=== PATIENT | female | born 1960 | race Caucasian/White ===

== ENCOUNTER 2020-06-01 10:04 | Observation (INO) ==
[2020-06-01 10:17] VITALS: BMI 35.2
--- NOTE | 2020-06-01 10:26 | DR.GENAD ---
HPI Time Seen Time Seen by Provider: 06/01/20 10:21 PCP Primary Care Physician: marcial montague Complaint/Symptoms Chief Complaint:: "05-25-20 tested + covid, took zpack, steroids, and still has not gotten any better, along with vits. Self Treatment fo Chief Complaint: all meds prescribed on 05-25 COVID-19 Coronavirus risk:travel/contact w/high risk person: Yes Has patient experienced Coronavirus symptoms: Yes Coronavirus symptoms experienced: Fever, Coughing and Shortness of Breath Source History Provided: Patient and Family Member Mode of Arrival Mode of Arrival: Wheelchair Timing Onset of Chief Complaint: 05/25/20 Came on: Suddenly Duration Duration: Constant Duration: Hours PMH PMH Past Medical History: Yes Past Medical History: Arthritis, Dyslipidemia and Hypertension Past Surgical History: Yes Surgical History: Ortho Surgery Family History History of Family Medical Conditions: Yes Family Medical History: PA, Coronary Artery Disease and Hypertension Social History Does any household member use tobacco: No Alcohol Use: None Do you use any recreational Drugs:: No Lives With: Alone Lives Where: Home Travel Risk Coronavirus risk:travel/contact w/high risk person: Yes Has patient experienced Coronavirus symptoms: Yes Coronavirus symptoms experienced: Fever, Coughing and Shortness of Breath Infectious screening In the last 2 months have you had wt loss of >10#?: NO Have you had fever, night sweats or hemotysis?: No Have you traveled outside the country in the last 6 months?: No Isolation: Droplet ROS Review of Systems Constitutional: No Symptoms Reported and See HPI Eyes: No Symptoms Reported and See HPI ENTM: No Symptoms Reported, See HPI and Drooling Respiratoy: No Symptoms Reported and See HPI Cardiovascular: No Symptoms Reported and See HPI Gastrointestinal/Abdominal: No Symptoms Reported and See HPI Genitourinary: No Symptoms Reported and See HPI Neurological: No Symptoms Reported and See HPI Musculoskeletal: No Symptoms Reported and See HPI Integumentary: No Symptoms Reported and See HPI Hematologic/Lymphatic: No Symptoms Reported and See HPI Endocrine: No Symptoms Reported and See HPI Psychiatric: No Symptoms Reported and See HPI All Other Systems: Reviewed and Negative Unable to Obtain Due To: Dementia PE Vital Signs Vitals: Temperature 98.5 F Pulse Rate 81 Respiratory Rate 16 Blood Pressure [Right Arm] 98/50 Blood Pressure 124/55 O2 Sat by Pulse Oximetry 95 ROR Labs Reviewed Result Diagrams: 12/21/20 11:06 06/01/20 11:06 Laboratory: WBC 6.2 X10^3/uL (3.6-10.0) 06/01/20 11:06 RBC 4.37 X10^6/uL (3.5-5.4) 06/01/20 11:06 Hgb 13.2 g/dL (12.0-16.0) 06/01/20 11:06 Hct 38.0 % (36.0-47.0) 06/01/20 11:06 MCV 87.0 fL (80.0-100.0) 06/01/20 11:06 MCH 30.1 pg (27.0-34.0) 06/01/20 11:06 MCHC 34.6 g/dL (33.0-35.0) 06/01/20 11:06 RDW 14.4 % (11.6-16.5) 06/01/20 11:06 Plt Count 261 X10^3/uL (150.0-450.0) 06/01/20 11:06 MPV 8.7 fL (7.4-11.0) 06/01/20 11:06 Neut % (Auto) 73.0 % (42.0-75.0) 06/01/20 11:06 Lymph % (Auto) 14.8 % (21.0-51.0) L 06/01/20 11:06 Mccone % (Auto) 10.3 % (0.0-13.0) 06/01/20 11:06 Eos % (Auto) 0.4 % (0.9-2.9) L 06/01/20 11:06 Baso % (Auto) 1.5 % (0.2-1.0) H 06/01/20 11:06 Neut # (Auto) 4.6 x10^3/uL (2.2-4.8) 06/01/20 11:06 Lymph # (Auto) 0.9 X10^3/uL (1.3-2.9) L 06/01/20 11:06 Mccone # (Auto) 0.6 x10^3/uL (0.3-0.8) 06/01/20 11:06 Eos # (Auto) 0.0 x10^3/uL (0.0-0.2) 06/01/20 11:06 Baso # (Auto) 0.1 X10^3/uL (0.0-0.1) 06/01/20 11:06 Absolute Nucleated RBC 0.1 /100WBC 06/01/20 11:06 Sample Site Rbra 06/01/20 11:47 ABG pH 7.490 (7.35-7.45) H 06/01/20 11:47 ABG pCO2 34.0 mmHg (35.0-45.0) L 06/01/20 11:47 ABG pO2 63.0 mmHg (80.0-100.0) L 06/01/20 11:47 ABG HCO3 25.9 mmol/L (22-26) 06/01/20 11:47 ABG O2 Saturation 94.0 % (90-100) 06/01/20 11:47 ABG Base Excess 2.8 mmol/L (-2.0-2.0) H 06/01/20 11:47 Micha Test N/a 06/01/20 11:47 A-a Gradient 44.0 mmHg 06/01/20 11:47 FiO2 21.0 06/01/20 11:47 Blood Gas Comments Pt ashwin well elj cdn 06/01/20 11:47 Sodium 137 mmol/L (136-145) 06/01/20 11:06 Corrected Sodium TNP 06/01/20 11:06 Potassium 3.3 mmol/L (3.5-5.1) L 06/01/20 11:06 Chloride 98 mmol/L (98-107) 06/01/20 11:06 Carbon Dioxide 26.4 mmol/L (21-32) 06/01/20 11:06 BUN 28 mg/dL (7-18) H 06/01/20 11:06 Creatinine 0.89 mg/dL (0.55-1.02) 06/01/20 11:06 Est GFR (MDRD) Af Amer > 60 (>60) 06/01/20 11:06 Est GFR (MDRD) Non-Af > 60 (>60) 06/01/20 11:06 Glucose 93 mg/dL (65-99) 06/01/20 11:06 Lactic Acid 1.2 mmol/L (0.4-2.0) 06/01/20 11:06 Calcium 8.9 mg/dL (8.5-10.1) 06/01/20 11:06 Corrected Calcium 9.7 mg/dL (8.5-10.1) 06/01/20 11:06 Total Bilirubin 0.30 mg/dL (0.2-1.0) 06/01/20 11:06 AST 49 Units/L (15-37) H 06/01/20 11:06 ALT 46 Units/L (12-78) 06/01/20 11:06 Alkaline Phosphatase 119 Units/L (46-116) H 06/01/20 11:06 Creatine Kinase 47 Units/L (26-192) 06/01/20 11:06 CK-MB (CK-2) < 1.0 ng/mL (0-4.0) 06/01/20 11:06 CK/CKMB % Calc 2.1 % (<4) 06/01/20 11:06 Troponin I < 0.02 ng/mL (0-1.5) 06/01/20 11:06 Total Protein 7.4 g/dL (6.4-8.2) 06/01/20 11:06 Albumin 3.0 g/dL (3.4-5.0) L 06/01/20 11:06 Globulin 4.4 g/dL (2.5-4.5) 06/01/20 11:06 Albumin/Globulin Ratio 0.7 Ratio (1.1-2.1) L 06/01/20 11:06 Specimen Type Random urine 06/01/20 10:49 Urine Color Yellow (YELLOW) 06/01/20 10:49 Urine Appearance Slightly hazy (CLEAR) 06/01/20 10:49 Urine pH 6.5 (5.0 - 8.0) 06/01/20 10:49 Ur Specific [place] 1.015 (1.000-1.030) 06/01/20 10:49 Urine Protein 2+ (NEGATIVE) 06/01/20 10:49 Urine Glucose (UA) Negative (NEGATIVE) 06/01/20 10:49 Urine Ketones Negative (NEGATIVE) 06/01/20 10:49 Urine Occult Blood 1+ (NEGATIVE) 06/01/20 10:49 Urine Nitrite Negative (NEGATIVE) 06/01/20 10:49 Urine Bilirubin Negative (NEGATIVE) 06/01/20 10:49 Urine Urobilinogen Normal (NORMAL) 06/01/20 10:49 Ur Leukocyte Esterase 2+ (NEGATIVE) 06/01/20 10:49 Urine RBC 0-2 /HPF (0-3) 06/01/20 10:49 Urine WBC 3-5 /HPF (0-5) 06/01/20 10:49 Ur Squamous Epith Cells Rare /HPF (NEGATIVE) 06/01/20 10:49 Urine Bacteria Negative /HPF (NEGATIVE) 06/01/20 10:49 Coarse Granular Casts Rare /HPF (NEGATIVE) 06/01/20 10:49 Ur Culture Indicated? No/not indicated 06/01/20 10:49 Opioid Opioid Risk Tool Age (Rajeev box if 16-45): No History of Preadolescent Sexual Abuse: No Total: 0 Total Score Risk Category: Low Risk Copyright: Aiden BLANCHARD predicting aberrant behaviors Instructions Forms: Precautions for COVID19 Patient Portal Social Distancing
[2020-06-01] MEDS ORDERED: NS 1000 ML 1,000 ML ONE (11:08)
--- NOTE | 2020-06-01 11:15 | RAD ---
HISTORYChest pain, COVID-19STUDYChest AP [id number]/2020FINDINGSThe heart is within normal limits in size. The jessy are normal. There is been resolution of the previously noted airspace opacities in the right lung. Predominantly peripheral airspace opacities remain in the left upper and left lower lobes. No pleural effusions are identified. Bony thorax is unremarkable.IMPRESSIONResolution of the previously noted right lung infiltratesNo change left lung infiltrates when compared with the prior examinationElectronically signed by: YAMILKA MCMULLEN (Jun 01, 2020 11:13:24)
[2020-06-01] MEDS: NS 1000 ML 1,000 ML IV SCH ×2 (11:20→20:41)
[2020-06-01 11:40] LABS: BASOPHILS # (AUTO) 0.1 X10^3/uL (0.0-0.1); BASOPHILS % (AUTO) 1.5 % (0.2-1.0); EOSINOPHILS % (AUTO) 0.4 % (0.9-2.9); HEMOGLOBIN 13.2 g/dL (12.0-16.0); LYMPHOCYTES # (AUTO) 0.9 X10^3/uL (1.3-2.9); LYMPHOCYTES % (AUTO) 14.8 % (21.0-51.0); MEAN CORPUSCULAR HEMOGLOBIN 30.1 pg (27.0-34.0); MEAN CORPUSCULAR HGB CONC 34.6 g/dL (33.0-35.0); MEAN PLATELET VOLUME 8.7 fL (7.4-11.0); MONOCYTES # (AUTO) 0.6 x10^3/uL (0.3-0.8); MONOCYTES % (AUTO) 10.3 % (0.0-13.0); NEUTROPHILS # (AUTO) 4.6 x10^3/uL (2.2-4.8); PLATELET COUNT 261 X10^3/uL (150.0-450.0); RED BLOOD COUNT 4.37 X10^6/uL (3.5-5.4); RED CELL DISTRIBUTION WIDTH 14.4 % (11.6-16.5); WHITE BLOOD COUNT 6.2 X10^3/uL (3.6-10.0)
[2020-06-01 11:52] LABS: BLOOD UREA NITROGEN 28 mg/dL (7-18); CALCIUM 8.9 mg/dL (8.5-10.1); CARBON DIOXIDE 26.4 mmol/L (21-32); CHLORIDE 98 mmol/L (98-107); CREATININE 0.89 mg/dL (0.55-1.02); SODIUM 137 mmol/L (136-145); TROPONIN I < 0.02 ng/mL (0-1.5); eGFR NON BLACK RACES > 60 (>60)
[2020-06-01 11:53] LABS: ABG BASE EXCESS 2.8 mmol/L (-2.0-2.0); ABG HCO3 25.9 mmol/L (22-26)
[2020-06-01 11:56] LABS: ALANINE AMINOTRANSFERASE 46 Units/L (12-78); ALKALINE PHOSPHATASE 119 Units/L (46-116); ASPARTATE AMINO TRANSFERASE 49 Units/L (15-37); CKMB % 2.1 % (<4); COR CA(FOR HYPOALB) 9.7 mg/dL (8.5-10.1); CREATINE KINASE 47 Units/L (26-192); CREATINE KINASE MB < 1.0 ng/mL (0-4.0); TOTAL PROTEIN 7.4 g/dL (6.4-8.2)
[2020-06-01] MEDS ORDERED: ROCEPHIN 1 GRAM IV PREMIX 1 G/50 ML IV.SOLN. IV ONE ×2 (13:51→14:53)
[2020-06-01] MEDS ORDERED: SOLU-Medrol 125 MG VIAL IVP ONE (13:52)
[2020-06-01] MEDS ORDERED: SOLU-Medrol 125 MG VIAL ONE (14:52)
[2020-06-01 16:45] LABS: BILIRUBIN,URINE NEGATIVE (NEGATIVE); BLOOD/HEMOGLOBIN,URINE 1+ (NEGATIVE); GLUCOSE, URINE NEGATIVE (NEGATIVE); KETONES,URINE NEGATIVE (NEGATIVE); LEUKOCYTE ESTERASE ,URINE 2+ (NEGATIVE); NITRITES,URINE NEGATIVE (NEGATIVE); PH,URINE 6.5 (5.0 - 8.0); PROTEIN,URINE 2+ (NEGATIVE); UROBILINOGEN,URINE NORMAL (NORMAL)
[2020-06-01 17:02] LABS: APPEARANCE,URINE SLIGHTLY HAZY (CLEAR); COLOR,URINE YELLOW (YELLOW)
[2020-06-01 17:12] LABS: BACTERIA,URINE NEGATIVE /HPF (NEGATIVE); COARSE GRANULAR CASTS,URINE RARE /HPF (NEGATIVE); SQUAMOUS EPITHELIAL CELL,UR RARE /HPF (NEGATIVE)
[2020-06-01 17:13] LABS: RBC,URINE 0-2 /HPF (0-3)
[2020-06-01] MEDS ORDERED: NS 1000 ML 1,000 ML IV SCH (18:26)
[2020-06-01] MEDS: DUONEB 0.5 MG/3 MG (3 mL) NEB SCH (21:00)
[2020-06-01] MEDS: PULMICORT NEB TX 0.5 MG NEB SCH (21:00)
[2020-06-02] MEDS: NS 1000 ML 1,000 ML IV SCH ×4 (05:04→18:12)
[2020-06-02] MEDS: DUONEB 0.5 MG/3 MG (3 mL) NEB SCH ×3 (05:25→20:10)
[2020-06-02 06:01] LABS: ABG ALLEN TEST POS; ABG BASE EXCESS -1.1 mmol/L (-2.0-2.0); ABG HCO3 22.4 mmol/L (22-26)
[2020-06-02 06:46] LABS: BASOPHILS % (AUTO) 0.2 % (0.2-1.0); HEMATOCRIT 34.5 % (36.0-47.0); HEMOGLOBIN 11.6 g/dL (12.0-16.0); LYMPHOCYTES # (AUTO) 1.1 X10^3/uL (1.3-2.9); LYMPHOCYTES % (AUTO) 23.1 % (21.0-51.0); MEAN CORPUSCULAR HEMOGLOBIN 29.5 pg (27.0-34.0); MEAN CORPUSCULAR HGB CONC 33.6 g/dL (33.0-35.0); MEAN CORPUSCULAR VOLUME 87.9 fL (80.0-100.0); MONOCYTES # (AUTO) 0.5 x10^3/uL (0.3-0.8); MONOCYTES % (AUTO) 11.1 % (0.0-13.0); NEUTROPHILS # (AUTO) 3.1 x10^3/uL (2.2-4.8); NEUTROPHILS % (AUTO) 65.6 % (42.0-75.0); PLATELET COUNT 258 X10^3/uL (150.0-450.0); RED BLOOD COUNT 3.93 X10^6/uL (3.5-5.4); RED CELL DISTRIBUTION WIDTH 14.3 % (11.6-16.5); WHITE BLOOD COUNT 4.7 X10^3/uL (3.6-10.0)
--- NOTE | 2020-06-02 07:02 | RAD ---
HISTORYShortness of breathSTUDYChest AP [id number]/21/2020FINDINGSThe heart is upper limits normal in size. No definite congestive heart failure is noted. Bilateral interstitial infiltrates are unchanged. No definite residual ground-glass or alveolar infiltrates on the right. Peripheral ground-glass infiltrates in the left upper lobe and left midlung are unchanged. No pleural effusions are identified. Bony thorax is unremarkable.IMPRESSIONNo significant change from the prior examinationElectronically signed by: YAMILKA MCMULLEN (Jun 02, 2020 07:00:50)
[2020-06-02 07:12] LABS: ALANINE AMINOTRANSFERASE 69 Units/L (12-78); ALBUMIN 2.6 g/dL (3.4-5.0); ALKALINE PHOSPHATASE 116 Units/L (46-116); ASPARTATE AMINO TRANSFERASE 64 Units/L (15-37); BLOOD UREA NITROGEN 20 mg/dL (7-18); CALCIUM 8.3 mg/dL (8.5-10.1); CARBON DIOXIDE 21.3 mmol/L (21-32); CHLORIDE 105 mmol/L (98-107); CKMB % 3.1 % (<4); COR CA(FOR HYPOALB) 9.4 mg/dL (8.5-10.1); CREATINE KINASE 32 Units/L (26-192); CREATINE KINASE MB < 1.0 ng/mL (0-4.0); CREATININE 0.66 mg/dL (0.55-1.02); SODIUM 140 mmol/L (136-145); TOTAL PROTEIN 6.6 g/dL (6.4-8.2); TROPONIN I < 0.02 ng/mL (0-1.5); eGFR NON BLACK RACES > 60 (>60)
[2020-06-02] MEDS: LOVENOX INJ 30 MG SYR SC SCH ×2 (08:53→20:03)
[2020-06-02] MEDS: PULMICORT NEB TX 0.5 MG NEB SCH ×2 (09:50→20:10)
[2020-06-02] MEDS ORDERED: REMDESIVIR 200 MG in NS 250 ML IV 250 ML IV SCH (09:58)
[2020-06-02] MEDS: LEVAQUIN PREMIX IV 500 MG 500 MG/100 ML BAG IV SCH (11:25)
[2020-06-02] MEDS: SOLU-Medrol 40 MG VIAL IVP SCH ×3 (11:25→21:08)
[2020-06-02] MEDS: TYLENOL 325 MG TAB PO PRN ×2 (13:11→21:23)
--- NOTE | 2020-06-02 21:50 | DR.H&P ---
H&P - History & Physical for Day of: H&P Date: 06/01/20 - Chief Complaint Chief Complaint: COUGH, SOB, FEVER, BODY ACHES - History of Present Illness History of Present Illness: WAS SEEN IN THE OFFICE LAST WEEK WITH COMPLAINTS OF BODY ACHES, COUGH, SHORTNESS OF BREATH, AND FEVER. SYMPTOMS STARTED ABOUT A WEEK AGO. SHE WAS SWABBED FOR COVID-19 IN THE OFFICE ON 05/25/20. SHE WAS POSITIVE. AT THAT TIME, SHE WAS STARTED ON A ZPAK, A MEDROL DOSEPAK, PLAQUENIL 200MG PO BID, AND ALBUTEROL NEB TX. SHE HAS COMPLETED THIS COURSE OF MEDICATION, BUT CONTINUES TO REPORT WORSENING IN SYMPTOMS DESPITE COMPLIANCE WITH MEDICATIONS. HER PMH INCLUDES HTN AND GERD. AUSCULTATION OF LUNG BAUER REVEALED DIMINISHED LUNG SOUNDS. ON ARRIVAL TO THE ER, VITALS WERE 98.5-81-16-95%-124/55. LABS WERE OBTAINED. ABNORMAL LAB VALUES INCLUDE THE FOLLOWING: POTASSIUM 3.3, BUN 28, AST 49, ALK PHOS 119, ALBUMIN 3.0. CARDIAC ENZYMES WITHIN NORMAL LIMITS. URINALYSIS REVEALED: WBC 3-5, RBC 0-2, LEUKOCYTES 2+, BACTERIA NEGATIVE, OCCULT BLOOD 1+, PROTEIN 2+. COVID-19 POSITIVE. AN ABG WAS OBTAINED. ABNORMAL LAB VALUES INCLUDE THE FOLLOWING: PH 7.490, PC02 34, P02 63, HC03 25.9, 02 SAT 94, FI02 21.0. BLOOD CULTURES ARE PENDING. A CHEST XRAY WAS OBTAINED AND REVEALED: Resolution of the previously noted right lung infiltrates. No change left lung infiltrates when compared with the prior examination. EKG REVEALED: SINUS RHYTHM WITH HR 76. SHE WAS PLACED ON NASAL CANNULA AT 2 LPM. IN THE ER, SHE WAS GIVEN ROCEPHIN 1G IV X 1, SOLU-MEDROL 125MG IV X 1, AND REMDESIVIR 200MG IV X 1. SHE WAS ADMITTED TO THE HOSPITAL FOR FURTHER EVALUATION AND TREATMENT OF PNEUMONIA DUE TO COVID-19, HYPOXIA, AND DEHYDRATION. SHE WAS STARTED ON NORMAL SALINE AT 125ML/HR, LEVAQUIN 500MG IV DAILY, REMDESIVIR 100MG IV DAILY, SOLU-MEDROL 80MG IV Q8H, DUONEBS TID, PULMICORT NEBS BID, AND LOVENOX 30MG SC BID. WE HAVE ORDERED ONE UNIT OF CONVALESCENT PLASMA TO BE TRANSFUSED WHEN AVAILABLE. - Past Medical History Past Medical History: Hypertension, Dyslipidemia, Arthritis - Past Surgical History Surgical History: Ortho Surgery - Family History Family Medical History: Heart Failure - Social History Does any household member use tobacco: No Alcohol Use: None Drug Use: None - Medications Home Medications: No Known Drug Allergies Allergy (Verified 05/29/20 13:28) CONTINUE taking the following medications bupropion HCl 450 mg PO DAILY 06/01/20 [History] [id number] 1 cap PO PRN PRN 06/01/20 [History] diclofenac potassium 75 mg PO DAILY 06/01/20 [History] hydrochlorothiazide 25 mg PO DAILY 06/01/20 [History] ibuprofen 800 mg PO TID 06/01/20 [History] montelukast [Singulair] 10 mg PO DAILY 06/01/20 [History] rosuvastatin 20 mg PO HS 06/01/20 [History] tramadol [Ultram] 50 mg PO PRN PRN 06/01/20 [History] valsartan 320 mg PO DAILY 06/01/20 [History] - Review of Systems Constitutional: Fever, Chills, Weakness Eyes: No Symptoms Reported ENT: No Symptoms Reported Respiratory: See HPI, Cough, Shortness of Breath, Wheezing Cardiovascular: No Symptoms Reported Gastrointestinal: No Symptoms Reported Genitourinary: No Symptoms Reported Musculoskeletal: No Symptoms Reported Skin: No Symptoms Reported Neurological: Weakness - Physical Exam Vital Signs: Temperature 97.6 F Pulse Rate [Left Brachial] 76 Pulse Rate 80 Respiratory Rate 20 Blood Pressure [Left Arm] 132/63 Blood Pressure [Right Arm] 98/50 Blood Pressure 124/55 O2 Sat by Pulse Oximetry 95 Oriented: Normal Eyes: Normal Ear: Normal Nose: Normal Throat: Normal Respiratory: Wheezes Throughout Cardiovascular: Normal : Normal Auscultation: Bowel Sounds: Normal Palpation: Normal Tenderness: Normal Skin: Normal Musculoskeletal: Normal Psychiatric: Normal Mood Description: Calm Affect: Normal Speech Pattern: Clear - Assessment/Plan (1) Pneumonia due to COVID-19 virus Status: Acute Plan: ADMIT, NORMAL SALINE AT 125ML/HR, LEVAQUIN 500MG IV DAILY, REMDESIVIR 100MG IV DAILY, SOLU-MEDROL 80MG IV Q8H, DUONEBS TID, PULMICORT NEBS BID, AND LOVENOX 30MG SC BID (2) Hypoxia Status: Acute (3) Dehydration Status: Acute - Allergies Allergies/Adverse Reactions: Allergies Allergy/AdvReac Type Severity Reaction Status Date / Time No Known Drug Allergies Allergy Verified 05/29/20 13:28
[2020-06-03] MEDS: NS 1000 ML 1,000 ML IV SCH ×3 (00:15→20:55)
[2020-06-03 05:04] LABS: ABG ALLEN TEST POS; ABG BASE EXCESS -1.1 mmol/L (-2.0-2.0); ABG HCO3 22.2 mmol/L (22-26)
[2020-06-03] MEDS: SOLU-Medrol 40 MG VIAL IVP SCH ×3 (05:18→21:05)
[2020-06-03] MEDS: DUONEB 0.5 MG/3 MG (3 mL) NEB SCH ×3 (06:00→22:15)
[2020-06-03 06:14] LABS: BASOPHILS % (AUTO) 0.3 % (0.2-1.0); HEMATOCRIT 35.6 % (36.0-47.0); HEMOGLOBIN 11.8 g/dL (12.0-16.0); LYMPHOCYTES # (AUTO) 1.1 X10^3/uL (1.3-2.9); LYMPHOCYTES % (AUTO) 19.8 % (21.0-51.0); MEAN CORPUSCULAR HEMOGLOBIN 29.3 pg (27.0-34.0); MEAN CORPUSCULAR VOLUME 88.7 fL (80.0-100.0); MEAN PLATELET VOLUME 9.2 fL (7.4-11.0); MONOCYTES # (AUTO) 0.4 x10^3/uL (0.3-0.8); MONOCYTES % (AUTO) 7.8 % (0.0-13.0); NEUTROPHILS % (AUTO) 72.1 % (42.0-75.0); PLATELET COUNT 264 X10^3/uL (150.0-450.0); RED BLOOD COUNT 4.01 X10^6/uL (3.5-5.4); RED CELL DISTRIBUTION WIDTH 14.3 % (11.6-16.5); WHITE BLOOD COUNT 5.6 X10^3/uL (3.6-10.0)
[2020-06-03 06:42] LABS: ALANINE AMINOTRANSFERASE 62 Units/L (12-78); ALBUMIN 2.7 g/dL (3.4-5.0); ALKALINE PHOSPHATASE 112 Units/L (46-116); ASPARTATE AMINO TRANSFERASE 47 Units/L (15-37); BLOOD UREA NITROGEN 13 mg/dL (7-18); CALCIUM 8.4 mg/dL (8.5-10.1); CARBON DIOXIDE 19.2 mmol/L (21-32); CHLORIDE 106 mmol/L (98-107); COR CA(FOR HYPOALB) 9.4 mg/dL (8.5-10.1); CREATININE 0.65 mg/dL (0.55-1.02); SODIUM 139 mmol/L (136-145); TOTAL PROTEIN 6.7 g/dL (6.4-8.2); eGFR NON BLACK RACES > 60 (>60)
--- NOTE | 2020-06-03 07:42 | RAD ---
HISTORYShortness of breathSTUDYChest AP [id number]/22/2020FINDINGSThe heart is upper limits normal size. No congestive heart failure is noted. Bilateral interstitial infiltrates are present unchanged from the prior examination. There are some ground-glass infiltrates peripherally in the left upper lobe also unchanged. No pleural effusions are identified. Bony thorax is unremarkable.IMPRESSIONNo significant change from the prior day's examinationElectronically signed by: YAMILKA MCMULLEN (Jun 03, 2020 07:40:51)
[2020-06-03] MEDS: PULMICORT NEB TX 0.5 MG NEB SCH ×2 (09:00→22:15)
[2020-06-03] MEDS: LEVAQUIN PREMIX IV 500 MG 500 MG/100 ML BAG IV SCH (09:33)
[2020-06-03] MEDS: LOVENOX INJ 30 MG SYR SC SCH ×2 (09:33→20:55)
[2020-06-03] MEDS: REMDESIVIR 100 MG in NS 250 ML IV 250 ML IV SCH (10:49)
[2020-06-03] MEDS ORDERED: POTASSIUM CHLORIDE LIQ 20 MEQ UDC PO PRN (12:32)
[2020-06-03] MEDS ORDERED: KLOR-CON PO PRN (12:32)
[2020-06-03] MEDS ORDERED: POTASSIUM CHL 60 MEQ/NS 0.45% 500 ML IV PRN (12:32)
[2020-06-03] MEDS ORDERED: POTASSIUM CHL 40 MEQ/NS 0.45% 500 ML IV PRN (12:32)
[2020-06-03] MEDS ORDERED: K-DUR TAB 20 MEQ PO PRN (12:32)
[2020-06-03] MEDS ORDERED: MICRO K EXTEN CAP 10 MEQ PO PRN (12:32)
[2020-06-03] MEDS ORDERED: K-RIDER 10 MEQ/NS 100 ML 10 MEQ/100 ML BAG IV PRN (12:32)
[2020-06-03] MEDS: MAGNESIUM SULFATE 1 GRAM/100 mL PREMIX 1 GM/100 ML BAG IV PRN ×2 (18:29→22:04)
[2020-06-03] MEDS: TYLENOL 325 MG TAB PO PRN (23:23)
[2020-06-04] MEDS: NS 1000 ML 1,000 ML IV SCH ×2 (05:52→11:18)
[2020-06-04] MEDS: SOLU-Medrol 40 MG VIAL IVP SCH (05:52)
[2020-06-04 06:24] LABS: BASOPHILS % (AUTO) 0.2 % (0.2-1.0); HEMATOCRIT 33.2 % (36.0-47.0); HEMOGLOBIN 11.1 g/dL (12.0-16.0); LYMPHOCYTES % (AUTO) 11.6 % (21.0-51.0); MEAN CORPUSCULAR HEMOGLOBIN 29.6 pg (27.0-34.0); MEAN CORPUSCULAR HGB CONC 33.6 g/dL (33.0-35.0); MEAN CORPUSCULAR VOLUME 88.1 fL (80.0-100.0); MEAN PLATELET VOLUME 9.4 fL (7.4-11.0); MONOCYTES # (AUTO) 0.5 x10^3/uL (0.3-0.8); MONOCYTES % (AUTO) 5.7 % (0.0-13.0); NEUTROPHILS # (AUTO) 7.1 x10^3/uL (2.2-4.8); NEUTROPHILS % (AUTO) 82.5 % (42.0-75.0); PLATELET COUNT 298 X10^3/uL (150.0-450.0); RED BLOOD COUNT 3.77 X10^6/uL (3.5-5.4); RED CELL DISTRIBUTION WIDTH 14.4 % (11.6-16.5); WHITE BLOOD COUNT 8.6 X10^3/uL (3.6-10.0)
[2020-06-04 06:28] LABS: ABG BASE EXCESS 0.3 mmol/L (-2.0-2.0); ABG HCO3 23.1 mmol/L (22-26)
[2020-06-04 06:29] LABS: ABG ALLEN TEST POS
[2020-06-04 06:42] LABS: ALANINE AMINOTRANSFERASE 59 Units/L (12-78); ALBUMIN 2.5 g/dL (3.4-5.0); ALKALINE PHOSPHATASE 93 Units/L (46-116); ASPARTATE AMINO TRANSFERASE 30 Units/L (15-37); BLOOD UREA NITROGEN 12 mg/dL (7-18); CALCIUM 8.1 mg/dL (8.5-10.1); CARBON DIOXIDE 22.2 mmol/L (21-32); CHLORIDE 107 mmol/L (98-107); COR CA(FOR HYPOALB) 9.3 mg/dL (8.5-10.1); COR NA(FOR HYPERGLY) 141 mmol/L (136-145); CREATININE 0.64 mg/dL (0.55-1.02); MAGNESIUM 2.1 mg/dL (1.7-2.9); SODIUM 140 mmol/L (136-145); eGFR NON BLACK RACES > 60 (>60)
[2020-06-04] MEDS: DUONEB 0.5 MG/3 MG (3 mL) NEB SCH (06:45)
--- NOTE | 2020-06-04 06:56 | RAD ---
HISTORYShortness of breathSTUDYChest AP [id number]/23/2020FINDINGSThe heart is within normal limits in size. Hien are normal. Bilateral interstitial infiltrates and left upper lobe peripheral ground-glass infiltrates are unchanged. No pleural effusions are identified. Bony thorax is unremarkable.IMPRESSIONNo change bilateral interstitial infiltrates and peripheral left upper lobe ground-glass infiltrates when compared to the prior examinationElectronically signed by: YAMILKA MCMULLEN (Jun 04, 2020 06:54:30)
[2020-06-04] MEDS: LOVENOX INJ 30 MG SYR SC SCH (09:28)
[2020-06-04] MEDS: REMDESIVIR 100 MG in NS 250 ML IV 250 ML IV SCH (09:28)
[2020-06-04] MEDS: LEVAQUIN PREMIX IV 500 MG 500 MG/100 ML BAG IV SCH (09:28)
[2020-06-04] MEDS: PULMICORT NEB TX 0.5 MG NEB SCH (09:50)
[2020-06-04 10:12] VITALS: BP 140/65
== END 2020-06-04 12:30 | disposition home or self-care (01) ==
LOC: OBS 10:04 → ER 10:04 → OBS 18:28 → ICU 19:17 → OBS 20:24 → MED/SURG 20:25
PROVIDERS: ADMIT Internal Medicine; ATTEND Internal Medicine
DX: E78.2 Mixed hyperlipidemia; U07.1 COVID-19; I10 Essential (primary) hypertension; R06.02 Shortness of breath; R09.02 Hypoxemia; J12.89 Other viral pneumonia; E86.0 Dehydration; R94.31 Abnormal electrocardiogram [ECG] [EKG]